=== PATIENT | female | born 1950 | race Caucasian/White ===

== ENCOUNTER 2022-09-07 07:14 | Outpatient (CLI) | payer OTHER ==
[2022-09-07] MEDS ORDERED: Iopamidol 370 76% 100 ML VIAL ONE (11:05)
== END 2022-09-07 07:15 | disposition home or self-care (01) ==
LOC: CT 07:14
PROVIDERS: ATTEND Nurse Practitioner Family
DX: R10.11 Right upper quadrant pain (principal); R03.0 Elevated blood-pressure reading, without diagnosis of hypertension
CPT/HCPCS: 74160; 82565; Q9967

== ENCOUNTER 2022-11-05 09:57 | Outpatient (CLI) | payer OTHER ==
[2022-11-04 09:35] VITALS: BMI 36.5
[2022-11-05] MEDS ORDERED: Scopolamine 1.5 mg/72 hour Patch ONE (11:56)
[2022-11-05] MEDS ORDERED: PHENYLEPHRINE-NS 100 MCG/ML 10 ML SYRINGE ONE (12:00)
[2022-11-05] MEDS ORDERED: PROPOFOL 200 MG/20 ML VIAL ONE (12:00)
[2022-11-05] MEDS ORDERED: Succinylcholine Chloride 100 MG/5 ML SYRINGE FS ONE (12:00)
[2022-11-05] MEDS ORDERED: Ondansetron PF 4 MG/2 ML Vial ONE (12:00)
[2022-11-05] MEDS ORDERED: Rocuronium Bromide 10 MG/ML (10ML VIAL) ONE (12:00)
[2022-11-05] MEDS ORDERED: Metoclopramide HCl 10 MG/2 ML VIAL ONE (12:00)
[2022-11-05] MEDS ORDERED: Lidocaine 1% PF 5 ML VIAL ONE (12:00)
[2022-11-05] MEDS ORDERED: fentaNYL PF 100 MCG/2 ML SYRINGE ONE (12:05)
[2022-11-05] MEDS ORDERED: Famotidine/PF 20 mg/2ml Vial ONE (12:05)
[2022-11-05] MEDS ORDERED: SUGAMMADEX SODIUM 200 MG/2 ML VIAL ONE (12:05)
[2022-11-05] MEDS ORDERED: Magnevist 469MG/ML 20 ML VIAL ONE (15:33)
== END 2022-11-05 14:20 | disposition home or self-care (01) ==
LOC: MRI 09:57
PROVIDERS: ATTEND Nurse Practitioner Family
DX: D73.89 Other diseases of spleen (principal)
CPT/HCPCS: 74183; 82565; A9579; J2405; J2704; J2765; S0028

== ENCOUNTER 2023-08-12 09:04 | Emergency (ER) | payer OTHER ==
[2023-08-12 10:02] LABS: Bilirubin Negative (Negative); Blood, Urine Trace (Negative); CAUTI Indications for Culture Dysuria,urgency,freq; Clarity Clear (Clear); Glucose, Urine (Dipstick) Normal (Negative); Ketone, Urine Negative (Negative); Leukocyte 500 Leu/uL (Negative); Nitrite Negative (Negative); Protein, Urine (Dipstick) Negative (Neg-Trace); Squamous Epithelial 0-3 HPF (0-3); Urobilinogen Normal mg/dL (Less than 2); WBC/HPF 21-50 HPF (0-3); pH, Urine 6.5 (5.0-9.0)
[2023-08-12 10:09] LABS: Bacteria/HPF 1+ HPF (None Seen)
[2023-08-12 10:10] LABS: Urine Culture Reflex Yes Yes
== END 2023-08-12 11:20 | disposition home or self-care (01) ==
LOC: ERS 09:04
DX: M25.561 Pain in right knee (principal); N39.0 Urinary tract infection, site not specified; I10 Essential (primary) hypertension; K21.9 Gastro-esophageal reflux disease without esophagitis; Z79.899 Other long term (current) drug therapy
CPT/HCPCS: 81001; 87077; 87086; 87186

== ENCOUNTER 2024-04-27 13:12 | Outpatient (CLI) | payer OTHER | END 2024-04-27 13:13 | disposition home or self-care (01) | LOC: BICMAMMO 13:12 | PROVIDERS: ATTEND Nurse Practitioner Family | DX: Z12.31 Encounter for screening mammogram for malignant neoplasm of breast (principal); Z13.820 Encounter for screening for osteoporosis; Z78.0 Asymptomatic menopausal state; M85.89 Other specified disorders of bone density and structure, multiple sites; Z85.42 Personal history of malignant neoplasm of other parts of uterus; Z98.82 Breast implant status | CPT/HCPCS: 77063; 77067; 77080 ==